=== PATIENT | male | born 1955 | race Caucasian/White ===

== ENCOUNTER 2016-06-20 02:03 | Inpatient (IN) | payer OTHER ==
[~2016-06-20] VITALS: Ht 170.2 cm; Wt 90.1 kg
[2016-06-20] VITALS (18 sets, daily range): BP systolic 62–127; BP diastolic 41–86
[~2016-06-20 02:03] MED LIST: ATORVASTATIN CA40 MG PO; BENICAR20 MG PO; CARBAMAZEPINE200 M1 PO; CARVEDILOL12.5 MG PO; DILTIAZEM 24HR240 MG PO; DOXAZOSIN MESYLA4 MG PO; EXCEDRIN MIGRA1 EAC3 PO; PROAIR HFA8.5 GM IH
[2016-06-20 02:50] LABS: EOSINOPHIL (%) 0.8 % (0-5); EOSINOPHIL COUNT 0.1 K/uL (0-0.3); HEMATOCRIT 44.1 % (38.0-50.0); IMMATURE GRANULOCYTE (%) 0.4 % (0.0-0.7); IMMATURE GRANULOCYTE COUNT 0.6 K/uL; LYMPHOCYTE COUNT 2.4 K/uL (1.0-2.8); MCH 31.1 PG (29.0-34.0); MCHC 34.9 G/DL (30.0-36.0); MCV 89.1 FL (86-99); MEAN PLAT.VOLUME 10.8 uM^3 (9.0-12.4); MONOCYTE (%) 4.2 % (3-12); MONOCYTE COUNT 0.6 K/uL (0-0.8); NEUTROPHIL (%) 76.8 % (45-76); NEUTROPHIL COUNT 10.3 K/uL (1.8-6.4); PLATELET COUNT 175 K/uL (156-360); RBC DIS.WIDTH-CV 12.1 % (11.8-14.6); RBC DIS.WIDTH-SD 38.5 % (39-53); RED BLOOD COUNT 4.95 M/uL (4.00-5.50); WHITE BLOOD COUNT 13.4 K/uL (4.1-10.2)
[2016-06-20 02:56] LABS: BASE EXCESS -1.7 mEq/L (-3 to +3); BICARBONATE 25.6 mEq/L (22-26); CARBOXY HGB 1.4 % (0-5); METHEMOGLOBIN 1.1 % (0-1.5); PCO2 52 mm Hg (35-45); PO2 96 mm Hg (80-100)
[2016-06-20 02:57] LABS: COMMENTS - BLOOD GASES C+; DEVICE 840; FI02 100 %; SITE LR
[2016-06-20 02:58] LABS: MECHANICAL RATE 20 resp/min; MODE AC; PEEP 5 CM/H20; TIDAL VOLUME 500 ML; TOTAL RESP RATE 20 resp/min
[2016-06-20 02:59] LABS: AMYLASE 82 IU/L (1-118); CHLORIDE 101 mEq/L (99-109); POTASSIUM 2.8 mEq/L (3.7-5.4); SODIUM 137 mEq/L (136-147)
[2016-06-20 03:01] LABS: GLUCOSE 200 mg/dL (70-99); INTER. NORMALIZED RATIO 1.1; PROTHROMBIN TIME 10.7 (9.2-11.2); PTT 24.1 (25-32)
[2016-06-20 03:02] LABS: ANION GAP 14 MEQ/L (2-14)
[2016-06-20 03:04] LABS: GFR ESTIMATE (CALCULATED) > 59 mL/min/; SERUM ETHYL ALCOHOL < 10 mg/dL
[2016-06-20 03:05] LABS: UREA NITROGEN (BUN) 12 mg/dL (9-23)
[2016-06-20 03:07] LABS: LIPASE 23 U/L (1.0-51.0)
[2016-06-20 03:07] LABS: ADD MIUA? YES; BILIRUBIN NEGATIVE; BLOOD MODERATE; COLOR YELLOW ((YELLOW)); GLUCOSE (STRIP) 250; KETONES NEGATIVE; LEUKOCYTES NEGATIVE; NITRITE NEGATIVE; PH, URINE 7.5 (5-8); PROTEIN (STRIP) >=300; SPECIFIC GRAVITY 1.012 (1.000-1.030); UROBILINOGEN 0.2 MG/DL (0.2-1.0)
[2016-06-20 03:10] LABS: TROP-I INTERPRETATION NEGATIVE; TROPONIN-I < 0.01 ng/mL (0.0-0.30)
[2016-06-20 03:16] LABS: AMPHETAMINE NEGATIVE (500 ng/mL); BARBITURATES NEGATIVE (200 ng/mL); BENZODIAZEPINES NEGATIVE (150 ng/mL); COCAINE NEGATIVE (150 ng/mL); INTERNAL CONTROLS VALID? YES; METHADONE NEGATIVE (200 ng/mL); METHAMPHETAMINE NEGATIVE (500 ng/mL); OPIATES (MORPHINE) NEGATIVE (100 ng/mL); OXYCODONE NEGATIVE (100 ng/mL); PHENCYCLIDINE NEGATIVE (25 ng/mL); PROPOXYPHENE NEGATIVE (300 ng/mL); THC CANNABINOIDS NEGATIVE (50 ng/mL); TRICYCLIC ANTIDEPRESSANTS NEGATIVE (300 ng/mL)
[2016-06-20 03:45] LABS: BACTERIA NONE SEEN; CASTS PRESENT /LPF; CRYSTALS NONE SEEN; EPITHELIAL CELLS RARE; FINE GRANULAR CASTS RARE /LPF; MUCUS NONE SEEN; RED BLOOD CELLS 0-5 /HPF (0-5); UCUL ADDED? NO; WHITE BLOOD CELLS 0-5 /HPF (0-5)
[2016-06-20 08:30] LABS: TOTAL BILIRUBIN 0.4 mg/dL (0.0-1.0)
[2016-06-20 08:31] LABS: ALKALINE PHOSPHATASE 81 IU/L (3-129)
[2016-06-20 08:33] LABS: DIRECT BILIRUBIN 0.1 mg/dL (0.0-0.3)
[2016-06-20 13:30] LABS: BICARBONATE 22.6 mEq/L (22-26); CARBOXY HGB 1.2 % (0-5); COMMENTS - BLOOD GASES NA C+; DEVICE VENT; FI02 75 %; MECHANICAL RATE 20 resp/min; METHEMOGLOBIN 1.4 % (0-1.5); MODE AC; PCO2 27 mm Hg (35-45); PO2 157 mm Hg (80-100); SITE LR; TOTAL RESP RATE 20 resp/min; pH 7.53 (7.35-7.45)
[2016-06-20 13:31] LABS: PEEP 5 CM/H20; TIDAL VOLUME 500 ML
[2016-06-20 13:40] LABS: METH RESISTANT S AUREUS PCR NEGATIVE (NEGATIVE)
[2016-06-20 13:41] LABS: PROBE CHECK PASS; SPECIMEN PROCESSING CONTROL PASS
[2016-06-21] VITALS (13 sets, daily range): BP systolic 79–150; BP diastolic 48–77
== END 2016-06-21 12:52 | DRG 64 ==
LOC: EME → EDBD 02:03 → EME 02:03 → 4WEST 10:39 → EDOF 10:39 → 4WEST 11:58
PROVIDERS: Emergency Medicine; Internal Medicine Pulmonary Disease
PROC: 5A1945Z Respiratory Ventilation, 24-96 Consecutive Hours (ICD-10-PCS; principal; 2016-06-20)
PROC: 0BH17EZ Insertion of Endotracheal Airway into Trachea, Via Natural or Artificial Opening (ICD-10-PCS; principal; 2016-06-20)
DX: I61.8 Other nontraumatic intracerebral hemorrhage (principal); G93.6 Cerebral edema; J98.11 Atelectasis; R47.1 Dysarthria and anarthria; R20.0 Anesthesia of skin; F31.9 Bipolar disorder, unspecified; I10 Essential (primary) hypertension; E11.9 Type 2 diabetes mellitus without complications; F17.220 Nicotine dependence, chewing tobacco, uncomplicated; R40.20 Unspecified coma; Z66 Do not resuscitate; Z51.5 Encounter for palliative care
CPT/HCPCS: 36600; 70450; 71010; 71250; 74176; 80048; 80076; 81003; 82150; 82803; 83690; 84484; 85025; 85610; 85730; 86850; 86900; 86901; 87070; 87205; 87641; 93005; 94002; 99281; 99285; C9113; G0480; J0461; J1165; J2405; J2704; J7030; J7050